=== PATIENT | female | born 1990 | race African-American/Black ===

== ENCOUNTER 2024-12-17 20:47 | Emergency (ER) | payer OTHER, MEDICARE ==
[~2024-12-17] VITALS: Ht 149.9 cm; Wt 51.0 kg
[2024-12-17 20:55] VITALS: TEMP 36.7; O2SAT 99
[2024-12-17] MEDS ORDERED: NITROGLYCERIN 0.4MG TABLET SL SL PRN (22:15)
[2024-12-17] MEDS: ASPIRIN 81MG TABLET PO ONE (22:29)
[2024-12-17] MEDS: ACETAMINOPHEN 325MG TABLET PO STA (22:29)
[2024-12-17] MEDS: KETOROLAC 30MG/ML VIAL IM STA (22:31)
[2024-12-17 23:27] LABS: BASOPHILS % 0.3 % (0.0-2.0); HEMATOCRIT. 38.8 % (36.0-48.0); HEMOGLOBIN. 13.4 g/dL (12.0-16.0); LYMPHOCYTES % 8.6 % (20.0-50.0); MEAN CORPUSCULAR HEMOGLOBIN 32.5 pg (28.0-32.0); MEAN CORPUSCULAR HGB CONC 34.6 g/dL (31.0-37.0); MEAN CORPUSCULAR VOLUME 93.8 fL (81.0-99.0); MEAN PLATELET VOLUME 7.4 fl (7.4-10.4); MONOCYTES % 4.7 % (2.0-8.0); NEUTROPHILS % 85.4 % (40.0-76.0); PLATELET 311 x1000/uL (130-400); RED BLOOD CELL COUNT 4.14 mill/uL (4.2-5.4); RED CELL DISTRIBUTION WIDTH 12.7 % (11.6-14.6); WHITE BLOOD COUNT 7.4 x1000/uL (4.5-11.0)
[2024-12-17 23:40] LABS: CHLORIDE 106 mEq/L (98-107); D-DIMER 0.55 mg/L FEU (<0.50); PARTIAL THROMBOPLASTIN TIME 26.5 sec (23.4-31.0); POTASSIUM 3.7 mEq/L (3.5-5.1); PROTHROMBIN TIME 10.7 sec (9.6-11.0); SODIUM 138 mEq/L (136-145)
[2024-12-17 23:41] LABS: CARBON DIOXIDE 20 mEq/L (21-32)
[2024-12-17 23:42] LABS: CALCIUM 9.4 mg/dL (8.7-10.4)
[2024-12-17 23:46] LABS: CREATININE 0.7 mg/dL (0.6-1.0); GLUCOSE 101 mg/dL (70-105)
[2024-12-17 23:47] LABS: UREA NITROGEN BLOOD 13 mg/dL (9-23)
[2024-12-17 23:48] LABS: HCG SCREEN NEGATIVE
[2024-12-18 00:20] LABS: ETHANOL BLOOD < 10 mg/dL (<10); TROPONIN I HIGH SENSITIVITY < 4 ng/L (3.0-34)
[2024-12-18] MEDS: IOHEXOL-350 100 ML BOTTLE ONE (00:35)
[2024-12-18] MEDS ORDERED: IBUP-2028 MT (01:20)
[2024-12-18 01:49] LABS: TROPONIN I HIGH SENSITIVITY < 4 ng/L (3.0-34)
[2024-12-18 02:01] VITALS: BP 136/76; PULSE 92; RESP 18
[2024-12-18] MEDS: KETOROLAC 15MG/ML VIAL IV ONE (02:01)
[2024-12-18] MEDS: KETOROLAC 30MG/ML VIAL IM ONE (02:02)
== END 2024-12-18 02:02 | disposition home or self-care (01) ==
LOC: ER 20:47
DX: R07.89 Other chest pain (principal); I10 Essential (primary) hypertension
CPT/HCPCS: 80048; 80320; 84703; 83880; 85025; 85379; 85610; 85730; 84484 ×2; 36415 ×2; 71045; 93005; 96372; 99285; 71275; 96374; Z7610; J1885 ×2; Q9967; G0480